=== PATIENT | female | born 1950 | race African-American/Black ===

== ENCOUNTER → 2017-01-23 | Outpatient (CLI) | payer OTHER ==
--- NOTE | 2017-01-23 14:44 | RAD ---
DATE: 01/23/2017 EXAM: MAMMO PAOLA SCREENING BILATERAL Bilateral digital screening mammography to include digital breast tomosynthesis (3D mammography) HISTORY: Screening study. COMPARISON: 08/08/2012 This study was interpreted with the benefit of Computerized Aided Detection (CAD). FINDINGS: Digital MLO and CC mammograms of both breasts were obtained. Additionally digital breast tomosynthesis (3D mammography) images of both breasts in the MLO and CC projections were performed. Comparison study is dated 08/08/2012. The breast parenchyma is heterogeneously dense which can obscure a lesion on mammography (breast density code C). No spiculated mass is seen. No malignant appearing calcification or area of architectural distortion is noted. Benign-appearing calcifications are seen scattered throughout both breasts. Digital breast tomosynthesis images demonstrate no spiculated mass or malignant appearing calcification. Since the previous examination there has been no significant interval change. IMPRESSION: BI-RADS Category 1, negative. There is no mammographic evidence of malignancy. Routine yearly screening mammography is recommended for follow-up. BI-RADS CATEGORY: 1 NEGATIVE RECOMMENDED FOLLOW-UP: 12M 12 MONTH FOLLOW-UP PQRS compliance statement: Patient information was entered into a reminder system with a target due date 01/23/2018 for the next mammogram. Mammography is a sensitive method for finding small breast cancers, but it does not detect them all and is not a substitute for careful clinical examination. A negative mammogram does not negate a clinically suspicious finding and should not result in delay in biopsying a clinically suspicious abnormality. "Our facility is accredited by the [employer] Mammography [employer]."
== END | disposition home or self-care (01) ==
LOC: MAMMO 11:00
PROVIDERS: ATTEND Nurse Practitioner
DX: Z12.31 Encounter for screening mammogram for malignant neoplasm of breast (principal)
CPT/HCPCS: 77063; G0202; 77067

== ENCOUNTER → 2019-04-03 | Outpatient (CLI) | payer OTHER ==
--- NOTE | 2019-04-08 18:16 | RAD ---
DATE: 04/03/2019 EXAM: MAMMO PAOLA SCREENING BILATERAL HISTORY: Benign right breast biopsy in the past. Routine screening. COMPARISON: 01/23/2017, 08/08/2012 screening mammogram This study was interpreted with the benefit of Computerized Aided Detection (CAD). Breast Density: DENSE The breast parenchyma is dense, which could reduce the sensitivity of mammography. Breast parenchyma level density D. FINDINGS: No suspicious calcifications or distortion. No masses in the interval. IMPRESSION: Stable BI-RADS CATEGORY: 1 NEGATIVE RECOMMENDED FOLLOW-UP: 12M 12 MONTH FOLLOW-UP PQRS compliance statement: Patient information was entered into a reminder system with a target due date in one year for the next mammogram. Mammography is a sensitive method for finding small breast cancers, but it does not detect them all and is not a substitute for careful clinical examination. A negative mammogram does not negate a clinically suspicious finding and should not result in delay in biopsying a clinically suspicious abnormality. "Our facility is accredited by the [employer] Mammography [employer]."
== END | disposition home or self-care (01) ==
LOC: MAMMO 15:27
PROVIDERS: ATTEND Nurse Practitioner Family
DX: Z12.31 Encounter for screening mammogram for malignant neoplasm of breast (principal)
CPT/HCPCS: 77063; 77067

== ENCOUNTER → 2021-06-16 | Outpatient (CLI) | payer OTHER ==
--- NOTE | 2021-06-16 17:01 | RAD ---
INDICATION : Routine Screening. COMPARISON: Priors including March 2019 TECHNIQUE: Standard mammogram screening views of the bilateral breasts were obtained. CAD was utilize d. FINDINGS: The breasts are heterogenous density. No definite suspicious mass. Within the right medial breast on the cc view there is a small cluster of calcifications located approximately 7 cm from the nipple wh ich appears either new or better seen on the current examination. IMPRESSION: BI-RADS Category 0: Incomplete. Further imaging evaluation is warranted. Within the right medial tamra st on the cc view there is a small cluster of microcalcifications identified. Recommend that the valarie ent return for diagnostic mammogram including spot magnification views to better assess the morpholog y. The patient was placed into the recall system with a suggested recall date for follow up imaging. Mammography is the most sensitive method for finding small breast cancers, but it does not detect the m all and is not a substitute for careful clinical examination. A negative mammogram does not negate a clinically suspicious finding and should not result in delay in biopsying a clinically suspicious abnormality. Electronically signed by: David Byrd MD (06/16/2021 4:59 PM) [id number]
== END ==
LOC: MAMMO 15:05
PROVIDERS: ATTEND Nurse Practitioner Family
DX: Z12.31 Encounter for screening mammogram for malignant neoplasm of breast (principal)
CPT/HCPCS: 77067

== ENCOUNTER → 2021-06-29 | Outpatient (CLI) | payer OTHER ==
--- NOTE | 2021-06-29 15:35 | RAD ---
EXAM: Right breast diagnostic mammogram. HISTORY: 70-year-old female presents for evaluation of right breast microcalcification demonstrate on a mammogram dated 06/16/2021. TECHNIQUE: Full-field digital and spot medication views of the right breast are obtained. COMPARISON: 06/16/2021 04/03/2019 BREAST PARENCHYMAL DENSITY: Level C - Heterogeneously dense. FINDINGS: There is a cluster of tiny microcalcifications within the inferior medial right breast at t he 4:00 to 5:00 position. The largest of these calcifications demonstrate benign round morphology. Th e surrounding calcifications are too faint to characterize. There are a few additional tiny clustered calcifications seen. This location which demonstrate layering in the lateral projection, favoring mi lk of calcium. There are also a few scattered benign calcifications within the superior breast. IMPRESSION: 1. Clustered and grouped microcalcifications within the right breast at the 4:00 to 5:00 position, th e largest of which demonstrate round benign morphology and others of which demonstrate morphology fav oring benign milk of calcium. There are few additional scattered benign-appearing calcifications with in the right breast. No associated mass or distortion is seen. 2. BI-RADS Category 3: Probably benign finding(s). Short term follow up with a diagnostic right breas t mammogram including spot magnification views in 6 months is recommended to confirm benignity. If your mammogram demonstrates that you have dense breast tissue, which could hide abnormalities, and if you have other risk factors for breast cancer that have been identified, you might benefit from s upplemental screening tests that may be suggested by your ordering physician. Dense breast tissue, i n and of itself, is a relatively common condition. This information is not provided to cause undue c oncern, but rather to raise your awareness and to promote discussion with your physician regarding th e presence of other risk factors, in addition to dense breast tissue. A report of your mammography re sults will be sent to you and your physician. You should contact your physician if you have any ques tions or concerns regarding this report. Mammography is a sensitive method for finding small breast cancers, but it does not detect them all a nd is not a substitute for careful clinical examination. A negative mammogram does not negate a clin ically suspicious finding and should not result in delay in biopsying a clinically suspicious abnorma lity. PQRS compliance statement - Patient information was entered into a reminder system with a target due date for the next mammogram. "Our facility is accredited by the [employer] Mammography Program." Electronically signed by: Tori Phillips MD (06/29/2021 3:32 PM) [id number]
== END ==
LOC: MAMMO 14:36
PROVIDERS: ATTEND Nurse Practitioner Family
DX: R92.0 Mammographic microcalcification found on diagnostic imaging of breast (principal)
CPT/HCPCS: 77065

== ENCOUNTER → 2022-01-04 | Outpatient (CLI) | payer OTHER ==
--- NOTE | 2022-01-04 09:30 | RAD ---
PROCEDURE: MG DIAGNOSTICUNILAT MAMMO HISTORY: The patient is 71 years old and is seen for Reason: 6 MONTH FOLLOW UP / Spl. Instructions: / History: . COMPARISON: June 29, 2021 and June 16, 2021 TECHNIQUE: Right breast CC and MLO views as well as ML view with paola. Spot compression views left br east ML and CC views DENSITY: The breast parenchyma is extremely dense, which could obscure a lesion on mammography. FINDINGS: Unchanged microcalcifications within the right medial breast are unchanged compared to prio r. No new microcalcifications. Calcific effusions demonstrate rounded appearance. IMPRESSION: Unchanged microcalcifications within the right medial breast. Recommend ML and cc magnifi cation views at time of bilateral mammograms with target date June 2022. Recommend annual screening mammograms per [employer] guidelines. Patient will be due in six months. BI-RADS category 3 Probably benign Our clinic nurse has been instructed to assist with communicating findings and recommendations to the patient's referring physician and in scheduling follow-up. Patient entered into a reminder system for annual screening mammogram. Electronically signed by: Erickson Guy DO (01/04/2022 9:28 AM) [id number]
== END ==
LOC: MAMMO 08:38
PROVIDERS: ATTEND Nurse Practitioner Family
DX: N63.10 Unspecified lump in the right breast, unspecified quadrant (principal)
CPT/HCPCS: 77065